=== PATIENT | male | born 1995 | race Caucasian/White ===

== ENCOUNTER 2019-11-29 14:06 | Emergency (ER) | payer OTHER, SELFPAY ==
[~2019-11-29] VITALS: Ht 172.7 cm; Wt 90.7 kg
[2019-11-29 15:30] VITALS: BP 128/54
--- NOTE | 2019-11-29 15:35 | NUR ---
C/O SORE THROAT X 3 DAYS,FEVER X 2 DAYS , COUGH,COWAN,BODY ACH X TODAY. MED HX: ASTHMA
[2019-11-29] MEDS ORDERED: ACETAMINOPHEN EXTRA STRENGTH 500 MG TAB PO ONE (15:40)
[2019-11-29] MEDS ORDERED: ACETAMINOPHEN EXTRA STRENGTH 500 MG TAB ONE (15:49)
--- NOTE | 2019-11-29 16:00 | NUR ---
TEMP 100 AT THIS TIME.
[2019-11-29 16:10] VITALS: BP 128/54
--- NOTE | 2019-11-29 16:10 | NUR ---
Patient discharged with v/s stable. Written and verbal after care instructions given and explained. Patient alert, oriented and verbalized understanding of instructions. Ambulatory with steady gait. All questions addressed prior to discharge. ID band removed. Patient advised to follow up with PMD. Rx of IBUPROFEN & ROBITUSSIN given. Patient educated on indication of medication including possible reaction and side effects. Opportunity to ask questions provided and answered.
--- NOTE | 2019-11-29 17:02 | NUR ---
Veronica ortiz in [facility] - 11/29/19 at 1702 by [id number]
--- NOTE | 2019-12-01 15:28 | NUR ---
COVID RESULTS RECEIVED FROM LAB. RESULT- POSITIVE. COPY OF LAB RESULT PLACED IN INFECTION CONTROL MAILBOX.
== END 2019-11-29 16:10 | disposition home or self-care (01) ==
LOC: MED 14:06 → EEVIPCON 14:06 → MED 16:10
DX: U07.1 COVID-19 (principal); B34.9 Viral infection, unspecified
CPT/HCPCS: 99283; U0003